=== PATIENT | female | born 2005 | race Caucasian/White ===

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

== ENCOUNTER 2024-05-11 21:14 | Emergency (ER) | payer OTHER, SELFPAY ==
[2024-05-11 21:15] VITALS: BP 141/90; PULSE 58; RESP 18; TEMP 36.4; O2SAT 99; BMI 28.3
--- NOTE | 2024-05-11 21:27 | EX.ED.DYSGE1 ---
HPI History of Present Illness Chief Complaint: Head Injury Narrative Narrative: Patient is a 18-year-old female with past medical history anxiety who presents to the emergency department with a chief complaint of concerned that she hit her head on her bed frame last night. She states that she was removing something from underneath her bed when she lifted her head too early hit her head. States that she did again shortly after this. She states that this occurred around 10 PM on 05/10/2024. States that she has been eating and drinking without any vomiting. Patient earlier today had some discomfort in her neck and noted that she took Advil and the symptoms improved. [facility] Medications ?Medication ?Instructions ?Recorded ?Last Taken ?Type NK 12/11/21 Unknown History Allergy/AdvReac Type Severity Reaction Status Date / Time No Known Allergies Allergy Verified 05/11/24 21:15 Social History Smoking Status: Never smoker ROS ROS ED ROS Narrative Constitutional: Denies any fevers, chills, headaches, lightness, dizziness Eyes: Denies change in vision double vision blurry vision Cardiovascular: Denies chest pain Abdomen: Denies abdominal pain nausea vomit diarrhea : Patient states that she is not sexually active and was on her menstrual cycle last week Neurological: Denies any numbness, weakness, tingling Musculoskeletal: Denies any back pain Skin: Denies rashes or lesions EXAM Physical Exam Narrative Exam Narrative: General: Patient was lying in bed rest comfortably did not appear to be in acute distress Head: Atraumatic, normocephalic Eyes: PERRL bilaterally, EOMI bilaterally, no conjunctival injection noted Neck: Soft, supple, trachea midline, no tense palpation midline cervical spine Cardiovascular: Regular rate and rhythm Respiratory: Clear to auscultation bilaterally Abdomen: No tenderness palpation Musculoskeletal: No tenderness palpation midline of the thoracolumbar spine no step-offs or deformities noted Extremities: +5/5 strength noted in the bilateral upper and lower extremities, radial pulses +2/4 in the bilateral extremities Neurological: Patient follow commands knew that she was at [facility] year is 2024. Sensation grossly intact. NIH is 0 GCS 15 Skin: Warm, dry, intact no rashes or lesions noted Const Vital Signs: 05/11/24 21:15 Temperature 97.5 F L Temperature Source Temporal Pulse Rate 58 L Respiratory Rate 18 Blood Pressure 141/90 H Blood Pressure Mean 107 Pulse Ox 99 Oxygen Delivery Method Room Air MDM MDM MDM Narrative Medical decision making narrative: Patient is a 18-year-old female who presented to the emergency department the chief complaint of concern for head injury after hitting her head twice last night on her bed frame. On the differential diagnose includes but limited to concussion, intracranial hemorrhage although I have low suspicion of this as this happened around 10 PM yesterday evening and she has been eating and drinking without any nausea vomiting and has no neurologic deficits. Advised the patient to follow-up with her primary care physician back in [place] and I did give her referral to primary care physician here at [place]. She was encouraged to return with worsening symptoms or concerns. She is encouraged to continue to rotate Tylenol and ibuprofen [id number] for pain as needed. She is agreeable with this plan all question concerns were answered at bedside she was discharged home in stable condition. Discharge Plan Triage Chief Complaint: Head Injury ED Provider: Charli Cole Dx/Rx/DC Orders Clinical Impression: Closed head injury without loss of consciousness Prescriptions: No Action NK Primary Care Provider: Jeison Causey Referrals: Jeison Causey MD [Primary Care Provider] - Namita Posey [facility], [[facility]] - Activity Restrictions/Additional Instructions: Follow-up your doctor in outpatient setting. Return with worsening symptoms or concerns. Continue to use ibuprofen and Tylenol for pain control you can rotate these [id number] and take something every 3 hours when you are rotating the two medications. Print Language: Hungarian Disposition Disposition: Home, Self Care
[2024-05-11 21:41] VITALS: O2SAT 98
[2024-05-11 21:52] VITALS: BP 120/63; PULSE 69; RESP 18; TEMP 36.3; O2SAT 98
== END 2024-05-11 21:52 | disposition home or self-care (01) ==
LOC: ED 21:32
PROVIDERS: Emergency Provider Emergency Medicine; Visit Provider Emergency Medicine
DX: S09.90XA Unspecified injury of head, initial encounter (principal); W22.03XA Walked into furniture, initial encounter
CPT/HCPCS: 99282